=== PATIENT | female | born 2000 | race Caucasian/White ===

== ENCOUNTER 2018-08-05 15:31 | Emergency (ER) | payer MEDICAID ==
[~2018-08-05] VITALS: Ht 152.4 cm; Wt 75.0 kg
[2018-08-05] MEDS ORDERED: KETOROLAC TROMETHAMINE 10 MG TABLET PO ONE (19:45)
[2018-08-05] MEDS ORDERED: CYCLOBENZAPRINE HCL 10 MG TABLET PO ONE (19:45)
[2018-08-05 20:20] VITALS: BP 118/75
== END 2018-08-05 20:22 | disposition home or self-care (01) ==
LOC: EMS 15:31
DX: S16.1XXA Strain of muscle, fascia and tendon at neck level, initial encounter (principal); S30.1XXA Contusion of abdominal wall, initial encounter; V43.52XA Car driver injured in collision with other type car in traffic accident, initial encounter; Y93.89 Activity, other specified; Y92.89 Other specified places as the place of occurrence of the external cause; Y99.8 Other external cause status